=== PATIENT | female | born 1995 | race Two or more races ===

== ENCOUNTER 2018-05-25 11:11 | Emergency (ER) | payer OTHER ==
[~2018-05-25] VITALS: Ht 152.4 cm; Wt 49.9 kg
[2018-05-25] MEDS ORDERED: VENTOLIN HFA18 GM IH (11:36)
== END 2018-05-25 14:45 | disposition home or self-care (01) ==
LOC: ER 11:11
DX: J45.998 Other asthma (principal)

== ENCOUNTER 2020-02-21 05:19 | Inpatient (IN) | payer OTHER ==
[~2020-02-21] VITALS: Ht 152.4 cm; Wt 2.3 kg
[~2020-02-21 05:19] MED LIST: VENTOLIN HFA18 GM IH
[2020-02-21] MEDS ORDERED: SYMBICORT 16010.2 GM IH (06:39)
[2020-02-21] MEDS ORDERED: VENTOLIN HFA18 GM IH (06:40)
[2020-02-21] MEDS ORDERED: PRENATAL TABLE1 EAC1 PO (06:41)
== END 2020-02-23 10:54 | disposition home or self-care (01) | DRG 787 ==
LOC: LDR 05:19 → SURG-SUITE 05:19 → O/R 08:13 → SURG-SUITE 08:32
PROVIDERS: ADMIT Obstetrics & Gynecology; ATTEND Obstetrics & Gynecology
PROC: 4A1HXFZ Monitoring of Products of Conception, Cardiac Rhythm, External Approach (ICD-10-PCS; 2020-02-21)
PROC: 3E033VJ Introduction of Other Hormone into Peripheral Vein, Percutaneous Approach (ICD-10-PCS; 2020-02-21)
PROC: 3E0F7SF Introduction of Other Gas into Respiratory Tract, Via Natural or Artificial Opening (ICD-10-PCS; 2020-02-21)
PROC: 10D00Z1 Extraction of Products of Conception, Low, Open Approach (ICD-10-PCS; principal; 2020-02-21 07:00)
DX: O76 Abnormality in fetal heart rate and rhythm complicating labor and delivery (principal); O41.03X0 Oligohydramnios, third trimester, not applicable or unspecified; Z3A.39 39 weeks gestation of pregnancy; Z37.0 Single live birth; Z20.828 Contact with and (suspected) exposure to other viral communicable diseases